=== PATIENT | female | born 1960 | race Caucasian/White ===

== ENCOUNTER 2017-08-12 11:03 | Day surgery (SDC) | payer BC, OTHER ==
[2017-08-04 15:36] VITALS: BMI 24.3
[2017-08-12] MEDS ORDERED: PROPOFOL 20 ML ONE ×2 (11:16)
[2017-08-12 15:35] VITALS: TEMP 97.8
[2017-08-12 15:53] VITALS: BP 115/65; PULSE 79
--- NOTE | 2017-08-14 14:28 | PATH ---
Surgical Pathology Report Patient Name: TONE MARR [facility]. Rec. #: [id number] /Age/Gender: 1960 (Age: 57) / F Account: [id number] Location: [facility]-ENDOSCOPY Taken: 08/12/2017 Received: 08/13/2017 Reported: 08/14/2017 Physicians: Britni Sylvester M.D. Specimen(s) Received THICKENED VALVE CECUM Clinical History Abdominal pain, GI bleed Postoperative diagnosis: Hemorrhoids, thickened valve Final Diagnosis CECUM, THICKENED VALVE, BIOPSY: MATURE ADIPOSE TISSUE WITH OVERLYING UNREMARKABLE COLONIC MUCOSA CONSISTENT WITH SUBMUCOSAL LIPOMA. Electronically Signed Britni Dickey M.D. Gross Description Received in formalin, labeled "thickened valve cecum" is a palma, irregular portion of soft tissue measuring 0.3 cm. in greatest dimension. The specimen is submitted in toto in one cassette. EMEKA/08/13/2017 dirk/08/13/2017
== END 2017-08-12 15:50 | disposition home or self-care (01) ==
LOC: FASU-ENDO 11:03
PROVIDERS: ATTEND Internal Medicine Gastroenterology
PROC: 0DBC8ZX Excision of Ileocecal Valve, Via Natural or Artificial Opening Endoscopic, Diagnostic (ICD-10-PCS; principal; 2017-08-12 13:00)
DX: Z86.010 Personal history of colon polyps (principal); K64.1 Second degree hemorrhoids; K64.4 Residual hemorrhoidal skin tags; D17.9 Benign lipomatous neoplasm, unspecified

== ENCOUNTER 2022-03-04 04:09 | Day surgery (SDC) | payer OTHER ==
[2022-02-28 12:34] VITALS: BMI 27.3
[2022-03-04] MEDS ORDERED: MIDAZOLAM HCL 2 MG/2 ML SINGLE DOSE VIAL ONE (09:39)
[2022-03-04] MEDS ORDERED: PROPOFOL 60 ML ONE (11:14)
[2022-03-04] MEDS ORDERED: ELECTROLYTE-148 SOLN 1,000 ML IV SCH (12:00)
[2022-03-04 12:07] VITALS: BP 117/75; PULSE 67; RESP 18; TEMP 98.8
== END 2022-03-04 12:35 | disposition home or self-care (01) ==
LOC: JASU-SURG 04:09
PROVIDERS: ATTEND Urology
PROC: 0TF3XZZ Fragmentation in Right Kidney Pelvis, External Approach (ICD-10-PCS; principal; 2022-03-04 10:00)
DX: N20.0 Calculus of kidney (principal)

== ENCOUNTER 2022-05-13 10:45 | Day surgery (SDC) | payer BC ==
[2022-05-07 14:27] VITALS: BMI 25.9
[2022-05-13 11:15] VITALS: RESP 16
[2022-05-13 13:40] VITALS: TEMP 97.8
[2022-05-13 13:42] VITALS: BP 132/91; PULSE 84
== END 2022-05-13 14:05 | disposition home or self-care (01) ==
LOC: FASU-ENDO 10:45
PROVIDERS: ATTEND Internal Medicine Gastroenterology
PROC: 0DJD8ZZ Inspection of Lower Intestinal Tract, Via Natural or Artificial Opening Endoscopic (ICD-10-PCS; principal; 2022-05-13 12:35)
DX: Z12.11 Encounter for screening for malignant neoplasm of colon (principal); K64.1 Second degree hemorrhoids; K64.8 Other hemorrhoids

== ENCOUNTER 2022-07-08 03:58 | Day surgery (SDC) | payer BC ==
[2022-07-03 15:06] VITALS: BMI 27.7
[2022-07-08] MEDS ORDERED: MIDAZOLAM HCL 2 MG/2 ML SINGLE DOSE VIAL ONE (11:51)
[2022-07-08] MEDS ORDERED: GENTAMICIN SO4 80 MG/2 ML VIAL IVPB ONE (11:57)
[2022-07-08] MEDS ORDERED: ELECTROLYTE-148 SOLN 1,000 ML IV SCH (12:15)
[2022-07-08 12:39] VITALS: RESP 18
[2022-07-08 13:10] VITALS: BP 117/83; PULSE 61; TEMP 98
== END 2022-07-08 13:45 | disposition home or self-care (01) ==
LOC: JASU-SURG 03:58
PROVIDERS: ATTEND Urology
PROC: 0TF3XZZ Fragmentation in Right Kidney Pelvis, External Approach (ICD-10-PCS; principal; 2022-07-08 11:00)
DX: N20.0 Calculus of kidney (principal)

== ENCOUNTER 2023-01-23 07:50 | Day surgery (SDC) | payer BC ==
[2023-01-15 16:16] VITALS: BMI 28.1
[2023-01-23] MEDS ORDERED: LIDOCAINE HCL/PF 2% SDV 5ML VIAL ONE (08:16)
[2023-01-23] MEDS ORDERED: PROPOFOL 160 ML ONE (08:17)
[2023-01-23 10:26] VITALS: TEMP 97.1
[2023-01-23 10:29] VITALS: RESP 18
[2023-01-23 11:02] VITALS: BP 120/69; PULSE 82
== END 2023-01-23 11:01 | disposition home or self-care (01) ==
LOC: FASU-ENDO 07:50
PROVIDERS: ATTEND Internal Medicine Gastroenterology
PROC: 0DB78ZX Excision of Stomach, Pylorus, Via Natural or Artificial Opening Endoscopic, Diagnostic (ICD-10-PCS; 2023-01-23)
PROC: 0DB48ZX Excision of Esophagogastric Junction, Via Natural or Artificial Opening Endoscopic, Diagnostic (ICD-10-PCS; 2023-01-23)
PROC: 0DB98ZX Excision of Duodenum, Via Natural or Artificial Opening Endoscopic, Diagnostic (ICD-10-PCS; principal; 2023-01-23 09:41)
DX: K29.50 Unspecified chronic gastritis without bleeding (principal); K21.00 Gastro-esophageal reflux disease with esophagitis, without bleeding; K44.9 Diaphragmatic hernia without obstruction or gangrene
CPT/HCPCS: 88305-TC; 88342-TC

== ENCOUNTER 2023-02-17 04:59 | Day surgery (SDC) | payer BC ==
[2023-02-12 17:01] VITALS: BMI 28.1
[2023-02-17 07:25] VITALS: RESP 20
[2023-02-17] MEDS ORDERED: MIDAZOLAM HCL 2 MG/2 ML SINGLE DOSE VIAL ONE (09:23)
[2023-02-17] MEDS ORDERED: FENTANYL CITRATE/PF 50 MCG/ML VIAL ONE (09:23)
[2023-02-17] MEDS ORDERED: ELECTROLYTE-148 SOLN 1,000 ML IV SCH (09:45)
[2023-02-17 12:03] VITALS: BP 110/72; PULSE 75; TEMP 97.7
== END 2023-02-17 11:40 | disposition home or self-care (01) ==
LOC: JASU-SURG 04:59
PROVIDERS: ATTEND Urology
PROC: 0TF3XZZ Fragmentation in Right Kidney Pelvis, External Approach (ICD-10-PCS; principal; 2023-02-17 09:00)
DX: N20.0 Calculus of kidney (principal)